=== PATIENT | female | born 1965 ===

== ENCOUNTER 2016-10-23 07:18 | Day surgery (SDC) | payer BC ==
[~2016-10-23] VITALS: Ht 167.6 cm; Wt 97.5 kg
[2016-10-23] VITALS (8 sets, daily range): BP systolic 109–121; BP diastolic 57–69
--- NOTE | 2016-10-23 07:15 | Anethesia Preoperative Eval ---
Anesthesia Pre-op PMH/ROS General Date of Evaluation: Oct 23, 2016 Time of Evaluation: 08:15 Anesthesiologist: baltazar ASA Score: ASA 3 Mallampati Score Class I : Soft palate, uvula, fauces, pillars visible Class II: Soft palate, uvula, fauces visible Class III: Soft palate, base of uvula visible Class IV: Only hard plate visible Mallampati Classification: Class II Surgeon: milton Diagnosis: GERD Gastritis Surgical Procedure: egd/colonoscopy Anesthesia History: none Social History: smoking - never smoked Family History: no anesthesia problems Allergies: Coded Allergies: No Known Allergies (Unverified , 10/22/16) Medications: see eMAR Past Medical History Cardiovascular: Reports: HTN Gastrointestinal/Genitourinary: Reports: GERD, other - c-sections x3, abdominal pain and bloating Other: obesity Anesthesia Pre-op Phys. Exam Physician Exam Constitutional: NAD Neurologic: CN 2-12 intact Cardiovascular: RRR Respiratory: CTA Airway Exam Mallampati Score: Class II MO: full Neck: supple TMD: 3fb ROM: full Teeth: intact Anesthesia Pre-op A/P Risk Assessment & Plan Assessment: gerd gastritis Plan: egd/colonoscopy Status Change Before Surgery: No Pre-Antibiotics Drug: KRISTEN Leo Oct 23, 2016 07:15
[~2016-10-23 07:18] MED LIST: ATORVASTATIN CA20 MG ORAL; DIURIL25 MG ORAL; IRON159 MG PO; NORVASC5 MG ORAL; POTASSIUM99 M3 PO; VITAMIN D1000 UNI1 ORAL; [UNRECOGNIZED DRUG - OTHER] PO
[2016-10-23] MEDS ORDERED: Propofol 10mg/ml 20ml IV ONE (08:00)
[2016-10-23] MEDS ORDERED: Lidocaine 1% MPF 10mg/ml 5ml ONE (08:00)
[2016-10-23] MEDS ORDERED: HYOSCYAMINE0.375 M1 ORAL (08:06)
--- NOTE | 2016-10-23 08:33 | Pre-Procedure Note/Attestation ---
Pre-Procedure Note/Attestation Complete Prior to Procedure Planned Procedure: not applicable Procedure Narrative: egd/colon Indications for Procedure Pre-Operative Diagnosis: screening colon, GERD Attestation I attest that I discussed the nature of the procedure; its benefits; risks and complications; and alternatives (and the risks and benefits of such alternatives ), prior to the procedure, with the patient (or the patient's legal access representative). I attest that, if there was a reasonable possibility of needing a blood transfusion, the patient (or the patient's legal access representative) was given the [facility] standardized written summary, pursuant to the [place] Blood Safety Act ([place] Health and Safety Code # 1645, as amended). I attest that I re-evaluated the patient just prior to the surgery and that there has been no change in the patient's H&P, except as documented below: HCRIS WANG Oct 23, 2016 08:33
--- NOTE | 2016-10-23 08:34 | Short Stay Surgery H&P ---
History of Present Illness History of Present Illness Chief Complaint screening colon, GERD HPI Yessica Fonseca is a 50 year old female who was admitted on for Gerd,Colon Screening Patient History Allergies: Coded Allergies: No Known Allergies (Unverified , 10/22/16) PAST MEDICAL HISTORY: (1) HTN (hypertension) Past Surgeries: Social History: Medication History Scheduled Amlodipine Besylate (Norvasc), 5 MG ORAL DAILY, (Reported) Atorvastatin Calcium* (Atorvastatin Calcium*), 20 MG ORAL BEDTIME, (Reported) Cholecalciferol (Vitamin D3)* (Vitamin D*), 2,000 UNITS ORAL DAILY, (Reported) Ferrous Sulfate, Dried (Iron), 65 MG PO DAILY, (Reported) Hydrochlorothiazide (Hydrochlorothiazide), 25 MG ORAL DAILY, (Reported) Hyoscyamine* (Levsinex*), 0.125 MG ORAL HS, (Reported) Potassium Gluconate (Potassium), 99 MG PO DAILY, (Reported) Review of Systems Cardiovascular: Reports: no symptoms Respiratory: Reports: no symptoms Skeletal: Reports: no symptoms Gastrointestinal: Reports: no symptoms Genitourinary: Reports: no symptoms Neurologic: Reports: no symptoms Endocrine: Reports: no symptoms Hematologic: Reports: no symptoms Physical Exam Vital Signs Last Vital Signs Date Time Temp Pulse Resp B/P Pulse Ox O2 Delivery O2 Flow Rate FiO2 10/23/16 07:56 97.9 57 20 120/68 99 Room Air Skin: normal HENT: normal Heart: normal Lungs: normal Abdomen: normal Extremities: normal Plan Plan of Care egd/colon Final Diagnosis: Attestation Are the patient's medical conditions optimized for surgery? Attestation Response: yes CHRIS WANG Oct 23, 2016 08:34
--- NOTE | 2016-10-23 08:59 | Endoscopy Procedure Note ---
Endoscopy Procedure Note Indication for Procedure: screening colon, GERD Procedures Performed: EGD, colonoscopy Operative Findings/Diagnosis: diverticulosis, hemorrhoids, gastritis Specimen: yes Pt Tolerated Procedure Well: Yes Estimated Blood Loss: none Anesthesiologist: stephanie cuevas Anesthesia: MAC Implant(s) used?: No 50 yrs or older w/o bx or poly: No 10yrs. F/U not recommended: Yes If not recommended, why?: Above average risk 10 yrs. F/U needed: Yes 18 years or older w/prev. colo: No CHRIS WANG Oct 23, 2016 08:59
--- NOTE | 2016-10-23 09:18 | Immediate Post-Op Evaluation ---
Immediate Post-Op Evalulation Immediate Post-Op Evalulation Procedure: egd/colonoscopy Date of Evaluation: Oct 23, 2016 Time of Evaluation: 09:16 IV Fluids: 0.9ns 250ml Blood Products: none Estimated Blood Loss: negligible Blood Pressure Systolic: 125 Blood Pressure Diastolic: 65 Pulse Rate: 50 Respiratory Rate: 18 O2 Sat by Pulse Oximetry: 100 Temperature (Fahrenheit): 97.4 Pain Score (1-10): 0 Nausea: No Vomiting: No Complications none Patient Status: awake, reacts Hydration Status: adequate Drug: KRISTEN Leo Oct 23, 2016 09:18
--- NOTE | 2016-10-23 09:20 | 48 Hour Post Anesthesia Eval ---
Post Anesthesia Evaluation Procedure: egd/colonoscopy Date of Evaluation: Oct 23, 2016 Time of Evaluation: 09:20 Blood Pressure Systolic: 125 0: 63 Pulse Rate: 50 Respiratory Rate: 18 Temperature (Fahrenheit): 97.4 O2 Sat by Pulse Oximetry: 99 Airway: patent Nausea: No Vomiting: No Pain Intensity: 0 Hydration Status: adequate Cardiopulmonary Status: stable Mental Status/LOC: patient returned to baseline Post-Anesthesia Complications: none Follow-up care needed: N/A KRISTEN ARBOLEDA Oct 23, 2016 09:20
[2016-10-23] MEDS ORDERED: Atropine Inj 1mg/10ml Syr IV PRN (09:30)
[2016-10-23] MEDS ORDERED: Midazolam 2mg/2ml Inj IVP PRN (09:30)
[2016-10-23] MEDS ORDERED: DiphenhydrAMINE 50mg/ml Inj IVP PRN (09:30)
[2016-10-23] MEDS ORDERED: Hydromorphone 0.5mg/0.5ml inj IVP PRN (09:30)
[2016-10-23 09:38] LABS: BASOPHILS % (AUTO) 1.1 % (0.0-2.0); EOSINOPHILS % (AUTO) 7.3 % (0.0-3.0); LYMPHOCYTES % (AUTO) 27.8 % (20.0-45.0); MEAN CORPUSCULAR HEMOGLOBIN 30.2 PG (27.0-31.0); MEAN CORPUSCULAR HGB CONC 33.3 G/DL (32.0-36.0); MEAN CORPUSCULAR VOLUME 91 FL (80-99); MEAN PLATELET VOLUME 7.6 FL (6.5-10.1); MONOCYTES % (AUTO) 7.4 % (1.0-10.0); NEUTROPHILS % (AUTO) 56.4 % (45.0-75.0); PLATELET COUNT 180 K/UL (150-450); RED BLOOD COUNT 4.13 M/UL (4.20-5.40); RED CELL DISTRIBUTION WIDTH 11.9 % (11.6-14.8)
[2016-10-23 09:55] LABS: ALANINE AMINOTRANSFERASE 31 U/L (3-33); ALBUMIN/GLOBULIN RATIO 1.5 (1.0-2.7); AMYLASE 77 U/L (10-110); ANION GAP 17 (5-15); ASPARTATE AMINO TRANSFERASE 20 U/L (5-40); CALCIUM 9.3 mg/dL (8.6-10.2); CARBON DIOXIDE 26 mEQ/L (20-30); CHLORIDE 100 mEQ/L (98-107); CREATININE 0.8 mg/dL (0.5-0.9); GLOMERULAR FILTRATION RATE > 60 mL/min (>60); HEMOLYSIS 4; LIPASE 20 U/L (< 60); SODIUM 143 mEQ/L (135-145); TOTAL PROTEIN 6.8 g/dL (6.6-8.7)
--- NOTE | 2016-10-23 17:00 | Procedure Note ---
DATE OF PROCEDURE: 10/22/2016 SURGEON: Dominguez Welsh M.D. PROCEDURE: Upper endoscopy with biopsy and colonoscope. ANESTHESIOLOGIST: Maria Teresa So M.D. INSTRUMENT: Olympus adult flexible upper endoscope and colonoscope. INDICATION: Screening colonoscope evaluation, abdominal pain, black tarry stools after gastrointestinal bleeding. REASON FOR PROCEDURE: The procedure, risks, benefits, and possible consequences, including hemorrhage, aspiration, perforation and infection, and alternative treatments, were explained to the patient/legal guardian by Dr. Dominguez Welsh and the patient/legal guardian understood and accepted these risks. DESCRIPTION OF PROCEDURE: After informed consent was obtained and the patient was adequately sedated, Olympus upper endoscope was advanced from mouth into the second portion of duodenum and retroflexion was performed in the stomach. The patient had evidence of a small hiatal hernia. No esophagitis. No esophageal mass. In the stomach, there was diffuse gastritis. Random biopsies from antrum was obtained to rule out H. pylori infection. At this time, the upper endoscope was retrieved and the patient was turned over for colonoscopy. First, a rectal exam was performed, which was normal. Then, the scope was advanced from the rectum into the cecum, documented by appendiceal orifice and terminal ileum. Quality of prep was excellent. The patient had some lymphoid aggregate in the terminal ileum, which were not biopsied. In the colon, the patient had good prep. There was some scattered diverticula in the left colon. No obvious mass or polyp was seen. Retroflexion of rectum showed evidence of medium-sized internal hemorrhoids. SUMMARY OF FINDINGS: 1. Small hiatal hernia. 2. Gastritis, status post biopsy. 3. Internal hemorrhoids. 4. Diverticulosis. 5. Lymphoid aggregate within the terminal ileum. RECOMMENDATIONS: 1. Follow up biopsies and treat accordingly. 2. We will send a set of laboratories today for evaluation of abdominal pain including CBC, CMP, amylase and lipase. 3. The patient will need a repeat colonoscopy in 10 years. 4. The patient to follow in the office for further workup of abdominal pain. I want to thank, Dr. Erickson, for this kind referral. Dominguez Welsh M.D. DR: Jerilyn JOB#: [id number] CC: Donte Erickson M.D.; Fax#: [phone]
--- NOTE | 2016-10-27 20:16 | Cardiology Report ---
APPROVED REPORT EKG Measurement Heart [id number] Sinus bradycardia Otherwise normal ECG
== END 2016-10-23 11:40 | disposition home or self-care (01) ==
LOC: GAS 07:18
DX: Z12.11 Encounter for screening for malignant neoplasm of colon (principal); K57.30 Diverticulosis of large intestine without perforation or abscess without bleeding; K64.8 Other hemorrhoids; K29.50 Unspecified chronic gastritis without bleeding; K44.9 Diaphragmatic hernia without obstruction or gangrene; K21.9 Gastro-esophageal reflux disease without esophagitis; I10 Essential (primary) hypertension; E66.9 Obesity, unspecified
CPT/HCPCS: 36415; 80053; 82150; 82378; 83690; 85025; 93005; 94003; 94150